=== PATIENT | female | born 1950 | race Caucasian/White ===

== ENCOUNTER 2016-03-24 15:22 | Emergency (ER) | payer MEDICARE, MEDICAID ==
[~2016-03-24] VITALS: Ht 170.2 cm; Wt 72.0 kg
[~2016-03-24 15:22] MED LIST: CYCL-117 PO; DICL75TA2 PO; ENAL10TA88 PO; FLOV44 IH; FLUT16SP17 NS; LAMO25TB2 PO
[2016-03-24 15:28] VITALS: Ht 170.2 cm; Wt 72.0 kg
--- NOTE | 2016-03-24 18:52 | ERD ---
ER Documentation Chief Complaint Date/Time DATE: 03/24/16 TIME: 18:49 Chief Complaint COUGH CONGESTION PHELGM X 1 MONTH HPI This is a 65-year-old female presenting to the emergency department for cough, nasal congestion 3 months. Patient states cough is productive and patient is producing clear sputum. Patient states she feels she has "fluid in her lungs." Patient denies chest pain, difficult to breathing or shortness of breath. No wheezing. No difficulty swallowing. Denies sore throat, earache or headache. Patient states has generalized body aches. Patient has not been seen by a provider for this. No fevers or chills. ROS All systems reviewed and are negative except as per history of present illness. 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 Reported Medications Lamotrigine* (Lamictal* CHEW) 25 Mg Tab.disper, 25 MG PO 11/21/11 Fluticasone Propionate* (Fluticasone Propionate* Nasal) 16 Gm [place].susp, 16 GM NS 11/21/11 Fluticasone Propionate* (Flovent* HFA 44) 10.6 Gm Inha, 10.6 GM IH 11/21/11 Enalapril (Enalapril) 10 Mg Tablet, 10 MG PO 11/21/11 Diclofenac Sodium* (Diclofenac Sodium*) 75 Mg Tablet.dr, 75 MG PO 11/21/11 Cyclobenzaprine Hcl (Flexeril) 10 Mg Tablet, 10 MG PO 11/21/11 Allergies Allergies: Coded Allergies: Sulfa (Sulfonamide Antibiotics) (Verified Allergy, Unknown, 03/25/16) PMhx/Soc Hypertension, diabetes mellitus type 2, hyperlipidemia Medical and Surgical Hx: pt denies Surgical Hx History of Surgery: No Anesthesia Reaction: No Hx Neurological Disorder: No Hx Respiratory Disorders: No Hx Psychiatric Problems: No Hx Miscellaneous Medical Probl: Yes (DM) Hx Alcohol Use: No Hx Substance Use: No Hx Tobacco Use: Yes Smoking Status: Current some day smoker Physical Exam Vitals Vital Signs Date Time Temp Pulse Resp B/P Pulse Ox O2 Delivery O2 Flow Rate FiO2 03/24/16 19:16 97.5 85 18 155/65 97 Room Air 03/24/16 15:28 97.5 87 22 162/67 95 Physical Exam Const: Alert, [id number] Head: Atraumatic Eyes: Normal Conjunctiva ENT: Normal External Ears, Nose and Mouth. Neck: Full range of motion..~ No meningismus. Resp: Diminished to auscultation bilaterally. No wheezing, rhonchi or crackles. Cardio: Regular rate and rhythm, no murmurs Abd: Soft, non tender, non distended. Normal bowel sounds Skin: No petechiae or rashes Back: No midline or flank tenderness Ext: No cyanosis, or edema Neur: Awake and alert Psych: Normal Mood and Affect Procedures/MDM ED COURSE: The patient was stable throughout ED course. I kept the patient and/or family informed of laboratory and diagnostic imaging results throughout the ED course. Imaging Chest x-ray Patient: DARBY CANTRELL : 1950 Age: 65 Sex: F MR #: [id number] DOS: 03/24/16 1816 Ordering MD: SAMANTHA ALONZO NP Location: [facility] Room/Bed: PROCEDURE: XR Chest. CLINICAL INDICATION: Cough for 3 months. TECHNIQUE: Single frontal view of the chest was obtained COMPARISON: None FINDINGS: Cardiomegaly. Prominent bilateral pulmonary artery suggests a degree of pulmonary hypertension. Likely changes of centrolobular emphysema. Lungs otherwise clear There is no pleural effusion or pneumothorax. IMPRESSION: 1. Cardiomegaly and likely pulmonary artery hypertension. 2. Consider CT correlation. 3. Otherwise, no acute process in the chest. MDM: This a 65 year old female who presents to ER for cough and nasal congestion x 3 months. Patient states she has productive cough for past 3 months and so chest xray was ordered. Chest xray reviewed by radiologist as cardiomegaly and likely pulmonary artery hypertension otherwise no acute process in the chest. Patient remains hemodynamically stable. No fevers or chills. Discussed findings with Dr. Brittny Sharp and we agree that patient is appropriate for outpatient management. No s/s respiratory distress. Low suspicion of pneumonia, pleural effusion, pneumothorax or pulmonary embolism. Patient's differential diagnosis includes but not limited to COPD, emphysema, URI, influenza, and bronchitis. Patient is appropriate for outpatient management and will be discharged with prescription for pro-air inhaler. Instructed patient to follow up with PCP in the next 24-48 hours and return to ED for any new or worsening symptoms. Patient verbalizes understanding. All questions answered at discharge. Departure Diagnosis: Primary Impression: Cough Condition: Stable SAMANTHA ALONZO NP Mar 24, 2016 18:52
--- NOTE | 2016-03-24 18:58 | RADRPT ---
PROCEDURE: XR Chest. CLINICAL INDICATION: Cough for 3 months. TECHNIQUE: Single frontal view of the chest was obtained COMPARISON: None FINDINGS: Cardiomegaly. Prominent bilateral pulmonary artery suggests a degree of pulmonary hypertension. Li yelena changes of centrolobular emphysema. Lungs otherwise clear There is no pleural effusion or pneumothorax. IMPRESSION: 1. Cardiomegaly and likely pulmonary artery hypertension. 2. Consider CT correlation. 3. Otherwise, no acute process in the chest. RPTAT: [facility] Physician Delfin Date Time Electronically viewed and signed by Brianda Mitchell Physician on 03/24/2016 18:58 RS/
[2016-03-24] MEDS ORDERED: ALBU8.5H3 INH (19:08)
[2016-03-24 19:16] VITALS: BP 155/65; PULSE 85; RESP 18; TEMP 97.5
[2016-03-25] MEDS ORDERED: VALA500T PO (15:37)
== END 2016-03-24 19:17 | disposition home or self-care (01) ==
LOC: FTE 15:22
DX: R05 Cough (principal); R09.81 Nasal congestion; E11.9 Type 2 diabetes mellitus without complications; I10 Essential (primary) hypertension; F17.210 Nicotine dependence, cigarettes, uncomplicated
CPT/HCPCS: 71010

== ENCOUNTER 2016-03-25 12:51 | Emergency (ER) | payer MEDICARE, OTHER ==
[~2016-03-25] VITALS: Ht 160 cm; Wt 78.4 kg
[~2016-03-25 12:51] MED LIST changes: +ALBU8.5H3 INH
[2016-03-25 12:54] VITALS: Ht 160 cm; Wt 78.4 kg
[2016-03-25 15:32] LABS: URINE BLOOD (Dip) POC Negative (NEGATIVE)
[2016-03-25] MEDS ORDERED: VALA500T PO (15:37)
--- NOTE | 2016-03-25 16:27 | ERD ---
ER Documentation Chief Complaint Date/Time DATE: 03/25/16 TIME: 16:23 Chief Complaint wants std's check up, has vaginal rash/blisters HPI 65-year-old female comes in the emergency department with a genital rash, patient has a history of HSV. She states that she was active sexually back 2 months ago and was with 2 male partners and she had vaginal intercourse and did not use any form of protection, she denies any use of condoms. She denies any discharge. She is requesting an HIV test at this time. Patient also states that she has been told that she has had a murmur, she would like to see if we can give her a list of cardiologists. ROS All systems reviewed and are negative except as per history of present illness. Medications Home Meds Active Scripts Valacyclovir Hcl* (Valacyclovir Hcl*) 500 Mg Tablet, 500 MG PO BID, #6 TAB Prov:WILEY SANCHEZ PA-C 03/25/16 Albuterol Sulfate* (Proair HFA*) 8.5 Gm Hfa.aer.ad, 2 PUFF INH Q4, #1 INHALER Prov:SAMANTHA ALONZO NP 03/24/16 Reported Medications Lamotrigine* (Lamictal* CHEW) 25 Mg Tab.disper, 25 MG PO 11/21/11 Fluticasone Propionate* (Fluticasone Propionate* Nasal) 16 Gm [place].susp, 16 GM NS 11/21/11 Fluticasone Propionate* (Flovent* HFA 44) 10.6 Gm Inha, 10.6 GM IH 11/21/11 Enalapril (Enalapril) 10 Mg Tablet, 10 MG PO 11/21/11 Diclofenac Sodium* (Diclofenac Sodium*) 75 Mg Tablet.dr, 75 MG PO 11/21/11 Cyclobenzaprine Hcl (Flexeril) 10 Mg Tablet, 10 MG PO 11/21/11 Allergies Allergies: Coded Allergies: Sulfa (Sulfonamide Antibiotics) (Verified Allergy, Unknown, 01/04/14) PMhx/Soc History of Surgery: No Anesthesia Reaction: No Hx Neurological Disorder: No Hx Respiratory Disorders: No Hx Psychiatric Problems: No Hx Miscellaneous Medical Probl: Yes (DM) Hx Alcohol Use: No Hx Substance Use: No Hx Tobacco Use: Yes Smoking Status: Current every day smoker Physical Exam Vitals Vital Signs Date Time Temp Pulse Resp B/P Pulse Ox O2 Delivery O2 Flow Rate FiO2 03/25/16 12:54 98.1 69 20 132/61 99 Physical Exam General: Well-developed, well-nourished. The patient appears in no acute distress.Pupils are equal, round, and reactive. Oral mucous membranes are moist. No pharyngeal erythema. Neck: Supple. Nontender. Lungs: Clear to auscultation. Normal air movement. Heart: Regular rate and rhythm. S1 and S2 are normal. No murmurs, gallops, or rubs. Abdomen: Soft, nontender, nondistended. Bowel sounds are normoactive. : Multiple vesicular lesions on the labia, no discharge Extremities: No clubbing or cyanosis. Normal pulses. Moving extremities x 4. No weakness. Neurologic: Alert and oriented 3. No focal deficits. Skin: Normal turgor. No rash or lesions. Results 24 hrs Laboratory Tests Test 03/25/16 15:33 Bedside Urine Blood Negative Bedside Urine Glucose (UA) Negative Bedside Urine Ketones (LAB) Negative Bedside Urine Leukocyte Esterase (L Negative Bedside Urine Nitrite (LAB) Negative Bedside Urine Protein (LAB) Trace Bedside Urine pH (LAB) 5.5 Procedures/MDM 65-year-old female comes in with HSV in the genital region, patient will be treated with Valtrex. This patient also gonorrhea and chlamydia sent. I have explained to her that given that HIV testing needs to have follow-up that she may follow-up with her primary care doctor to get further evaluation. Departure Diagnosis: Primary Impression: HSV infection Additional Impression: Encounter for laboratory test Condition: Good Patient Instructions: Herpes Genitalis, Hsv: Type Ii Referrals: EDNA FONSECA MD,NED LESTER,DUSTY DIAS MD [facility] YOU HAVE RECEIVED A MEDICAL SCREENING EXAM AND THE RESULTS INDICATE THAT YOU DO NOT HAVE A CONDITION THAT REQUIRES URGENT TREATMENT IN THE EMERGENCY DEPARTMENT. FURTHER EVALUATION AND TREATMENT OF YOUR CONDITION CAN WAIT UNTIL YOU ARE SEEN IN YOUR DOCTORS OFFICE WITHIN THE NEXT 1-2 DAYS. IT IS YOUR RESPONSIBILITY TO MAKE AN APPOINTMENT FOR FOLOW-UP CARE. IF YOU HAVE A PRIMARY DOCTOR --you should call your primary doctor and schedule an appointment IF YOU DO NOT HAVE A PRIMARY DOCTOR YOU CAN CALL OUR PHYSICIAN REFERRAL HOTLINE AT IF YOU CAN NOT AFFORD TO SEE A PHYSICIAN YOU CAN CHOSE FROM THE FOLLOWING [facility] CLINICS [facility] [address] [facility] [address] [facility] [address] [facility] [address] [facility] [address] [facility] [facility] [address] [facility]. [facility] YOU HAVE RECEIVED A MEDICAL SCREENING EXAM AND THE RESULTS INDICATE THAT YOU DO NOT HAVE A CONDITION THAT REQUIRES URGENT TREATMENT IN THE EMERGENCY DEPARTMENT. FURTHER EVALUATION AND TREATMENT OF YOUR CONDITION CAN WAIT UNTIL YOU ARE SEEN IN YOUR DOCTORS OFFICE WITHIN THE NEXT 1-2 DAYS. IT IS YOUR RESPONSIBILITY TO MAKE AN APPOINTMENT FOR FOLOW-UP CARE. IF YOU HAVE A PRIMARY DOCTOR --you should call your primary doctor and schedule and appointment IF YOU DO NOT HAVE A PRIMARY DOCTOR YOU CAN CALL OUR PHYSICIAN REFERRAL HOTLINE AT . IF YOU CAN NOT AFFORD TO SEE A PHYSICIAN YOU CAN CHOSE FROM THE FOLLOWING [facility] INSTITUTIONS: [facility] [address] [place] [address] [facility] [address] [place], [place] [id number] [place] [address] [address] [place] [address] [facility] U[facility]ENT [facility]/SPECIALTIES Additional Instructions: Call your primary care doctor TOMORROW for an appointment during the next 1-2 days.See the doctor sooner or return here if your condition worsens before your appointment time. WILEY SANCHEZ PA-C Mar 25, 2016 16:27
[2016-03-25 16:49] VITALS: BP 132/68; PULSE 82; RESP 19; TEMP 98.4
== END 2016-03-25 16:49 | disposition home or self-care (01) ==
LOC: FTE 12:51
DX: B00.9 Herpesviral infection, unspecified (principal); E11.9 Type 2 diabetes mellitus without complications; F17.210 Nicotine dependence, cigarettes, uncomplicated; Z00.01 Encounter for general adult medical examination with abnormal findings
CPT/HCPCS: 81003; 87591; 99283